=== PATIENT | female | born 1965 | race Caucasian/White ===

== ENCOUNTER → 2019-10-17 | Outpatient (CLI) | payer BC ==
[~2019-10-17] MED LIST: DILT240C2
--- NOTE | 2019-10-17 15:44 | RAD ---
US PELVIS W/TV History: Postmenopausal bleeding Comparison: February 25, 2016 Findings: Multiple transabdominal sonographic images of the pelvis are submitted. Pelvic structures are not well visualized. Transvaginal ultrasound: Multiple transvaginal sonographic images of the pelvis are submitted. Uterus measured 10.4 x 4.6 x 6 cm. Previously demonstrated uterine masses are not demonstrated on this exam. Endometrium is considered thickened for a postmenopausal patient at 0.9 cm. Left ovary measured 3.4 x 3.1 x 2.6 cm. There is anechoic lesion of the left ovary 3.2 x 2.5 x 2.4 cm. There is normal low resistance vascularity of the left ovary. Right ovary measured 2.9 x 2 x 1.7 cm. There is a hypoechoic lesion of the right ovary 1.7 x 1.6 x 1.2 cm with some internal echoes, not associated with significant internal vascularity on color Doppler imaging.. There is normal low resistance vascularity of the right ovary. No significant free fluid is demonstrated. There are nabothian cysts. Impression: 1. Endometrium is considered thickened for postmenopausal patient, could be due to hyperplasia, neoplasm not excluded. 2. There is a simple cyst of the left ovary. Hypoechoic lesion with internal echoes of the right ovary may be a complex cyst, consider 3 month follow-up. There is no free fluid. Electronically signed by: Yaron Aparicio MD (10/17/2019 3:41 PM) [id number]
== END | disposition home or self-care (01) ==
LOC: US 13:19
PROVIDERS: ATTEND Physician Assistant
DX: N95.8 Other specified menopausal and perimenopausal disorders (principal); N83.202 Unspecified ovarian cyst, left side
CPT/HCPCS: 76830; 76856